=== PATIENT | female | born 1995 | race Two or more races ===

== ENCOUNTER → 2025-02-06 | Outpatient (CLI) | payer BC, SELFPAY ==
--- NOTE | 2025-02-06 | XR_ITS ---
Examination: Transvaginal ultrasound of the pelvis, complete Technique: Transvaginal sonographic images pelvis performed using guerrier scale imaging Exam date and time: February 06, 2025, 0831 hours INDICATIONS: LV pain and vaginal bleeding post IUD placement one week ago FINDINGS: Intrauterine device is noted in satisfactory position. Endometrial stripe 0.8 cm Right ovary 4.1 cm arterial flow small follicles Left ovary 2.4 cm arterial flow IMPRESSION: Intrauterine device satisfactory position
== END | disposition home or self-care (01) ==
PROVIDERS: PCP Family Medicine; Referring Provider Registered Nurse; Visit Provider Registered Nurse
DX: R10.2 Pelvic and perineal pain (principal); Z30.431 Encounter for routine checking of intrauterine contraceptive device
CPT/HCPCS: 76830; 84703

== ENCOUNTER → 2025-02-08 | Outpatient (CLI) | payer BC, SELFPAY ==
[2025-02-08 14:48] LABS: Beta HCG,Quantitative < 1 mIU/mL (<5.0)
== END | disposition home or self-care (01) ==
LOC: COPL 13:48
PROVIDERS: PCP Registered Nurse; Referring Provider Registered Nurse; Visit Provider Registered Nurse
DX: R10.2 Pelvic and perineal pain (principal)
CPT/HCPCS: 36415; 84702